=== PATIENT | male | born 2000 | race Caucasian/White ===

== ENCOUNTER 2023-10-20 21:16 | Emergency (ER) | payer OTHER ==
[~2023-10-20] VITALS: Ht 167.6 cm; Wt 59.0 kg
[2023-10-20 21:24] VITALS: BP 118/87; PULSE 70; RESP 16; TEMP 98.6; O2SAT 98
--- NOTE | 2023-10-20 21:36 | NUR ---
TO CHAIR C FOLLOWING TRIAGE. SWABS OBTAINED AND SENT TO LAB
[2023-10-20] MEDS ORDERED: MECL-303 PO (21:45)
[2023-10-20 21:58] LABS: FLU A ANTIGEN NEGATIVE (NEGATIVE)
[2023-10-20 21:59] LABS: FLU B ANTIGEN POSITIVE (NEGATIVE)
[2023-10-20] MEDS ORDERED: TAM75 PO (22:01)
--- NOTE | 2023-10-20 22:08 | NUR ---
Written and verbal after care instructions given and explained. Patient alert, oriented and verbalized understanding of instructions. Ambulatory with steady gait. All questions addressed prior to discharge. ID band removed. Patient advised to follow up with PMD. Rx given. Patient educated on indication of medication including possible reaction and side effects. Opportunity to ask questions provided and answered.
== END 2023-10-20 22:08 | disposition home or self-care (01) ==
LOC: MED 21:16
DX: J10.1 Influenza due to other identified influenza virus with other respiratory manifestations (principal); Z20.822 Contact with and (suspected) exposure to COVID-19; Z79.899 Other long term (current) drug therapy
CPT/HCPCS: 99283